=== PATIENT | female | born 1975 | race Caucasian/White ===

== ENCOUNTER 2016-12-16 10:17 | Outpatient (CLI) ==
--- NOTE | 2016-12-16 11:37 | US ---
EXAM: THYROID ULTRASOUND HISTORY: Hypothyroidism FINDINGS: Ultrasound thyroid. Real time erwin-scale ultrasound and color Doppler imaging. COMPARISON: None The right thyroid lobe measures 5.5 x 1.6 x 1.6 cm. The isthmus measures 0.32 cm. The left thyroid lobe measures 5.3 x 1.5 x 1.7 cm. Within the right lobe, there is a mid level 3.4 x 1.7 x 1.1 cm nodule suggested which is isoechoic m ostly solid having no definite internal microcalcification or increased vascularity relative to the remainder of the gland. Within the mid-left lobe, there is a 2.4 x 1.3 x 1.1 cm similar appearing n odule. There appears to be a tiny oval shaped 0.6 cm nodule in the inferior left lobe which may be partially calcified. The gland in general is diffusely heterogeneous and hyperemic. IMPRESSION: 1. Prominent sized heterogeneous hyperemic gland with bilateral nodules as described. 2. Speciality consultation with endocrinology for future management to be considered at the discreti on of the ordering physician. Follow-up ultrasound recommended.
== END 2016-12-16 10:18 | disposition home or self-care (01) ==
LOC: RAD 10:17
PROVIDERS: ATTEND Family Medicine
DX: E03.8 Other specified hypothyroidism (principal)

== ENCOUNTER 2018-06-30 08:37 | Outpatient (CLI) | END 2018-06-30 08:38 | disposition home or self-care (01) | LOC: LAB 08:37 | PROVIDERS: ATTEND Internal Medicine | DX: E78.4 Other hyperlipidemia (principal); E03.9 Hypothyroidism, unspecified | CPT/HCPCS: 36415; 80053; 80061; 83735; 84443 ==